=== PATIENT | female | born 1965 | race Caucasian/White ===

== ENCOUNTER → 2017-12-05 | Outpatient (CLI) | payer BC | LOC: PREOP 05:32 | PROVIDERS: ATTEND Surgery | DX: Z01.818 Encounter for other preprocedural examination (principal); C43.59 Malignant melanoma of other part of trunk ==

== ENCOUNTER → 2019-06-22 | Outpatient (CLI) | payer BC ==
--- NOTE | 2019-06-22 13:34 | Diagnostic Imaging Report ---
PROCEDURE: US Non-OB pelvis comp/trans. TECHNIQUE: Multiple real-time grayscale images were obtained of the pelvis in various projections endovaginally. Transabdominal imaging was also performed. INDICATION: Endometrial wall thickening. FINDINGS: Uterus measures 6.7 x 5.6 x 4.7 cm. The endometrium is thickened to 14 mm. No discrete endometrial mass is identified. There is an echogenic lesion within the right myometrium measuring approximately 14 mm in size, likely a fibroid. Right ovary measures 2.9 x 2.4 x 2.6 cm, and the left ovary measures 3.0 x 2.0 x 2.2 cm. Right ovary does contain a 17 mm cyst. There appears to be blood flow to the ovaries. No other mass is detected. There is no free fluid. IMPRESSION: 1. Endometrial thickening of 14 mm. 2. Probable uterine fibroid. 3. 17 mm right ovarian cyst. Dictated by: Dictated on workstation # [id number]
== END ==
LOC: RAD 10:40
PROVIDERS: ATTEND Internal Medicine Hematology & Oncology
DX: N83.201 Unspecified ovarian cyst, right side (principal); C43.9 Malignant melanoma of skin, unspecified; R93.89 Abnormal findings on diagnostic imaging of other specified body structures
CPT/HCPCS: 76830; 76856

== ENCOUNTER 2020-08-29 05:33 | Outpatient (RCR) | payer BC ==
[~2020-08-29] VITALS: Ht 160 cm; Wt 97.7 kg
[~2020-08-29 05:33] MED LIST: ACYC200C PO; LACT1CAP62 PO; MULT-1136 PO; TERB250T16 PO
== END 2020-08-29 10:18 | disposition home or self-care (01) ==
LOC: PREOP 05:33
PROVIDERS: ATTEND Obstetrics & Gynecology
DX: Z01.812 Encounter for preprocedural laboratory examination (principal); Z20.828 Contact with and (suspected) exposure to other viral communicable diseases
CPT/HCPCS: 87635

== ENCOUNTER 2020-09-01 11:16 | Day surgery (SDC) | payer BC ==
[~2020-09-01] VITALS: Ht 160 cm; Wt 97.7 kg
[2020-09-01] VITALS (12 sets, daily range): BP systolic 99–133; BP diastolic 44–78
[2020-09-01] MEDS ORDERED: fentaNYL INJECTION 100 MCG/2 ML AMP ONE (11:42)
[2020-09-01] MEDS ORDERED: LIDOCAINE PF 2% 5 ML (XYLOCAINE) VIAL ONE (11:42)
[2020-09-01] MEDS ORDERED: ONDANSETRON 4 MG/2 ML (SDV) Z0FRAN ONE (11:42)
[2020-09-01] MEDS ORDERED: proPOfol 200 MG/20 ML (DIPRIVAN) VIAL IV ONE (11:42)
[2020-09-01] MEDS ORDERED: MIDAZOLAM 2 MG/2 ML (VERSED) VIAL ONE (11:42)
[2020-09-01] MEDS ORDERED: SEVOFLURANE (ULTANE) 15 ML INHAL SOLN ONE ×3 (11:43→14:22)
[2020-09-01] MEDS ORDERED: LACTATED RINGERS 1,000 ML IV PRN (12:02)
[2020-09-01] MEDS ORDERED: metroNIDAZOLE 500MG/100ML IVPB 100 ML ONE (12:07)
[2020-09-01] MEDS ORDERED: ceFAZolin INJECTION 1,000 MG ONE (12:07)
[2020-09-01] MEDS ORDERED: ceFAZolin INJECTION 1,000 MG in WATER (STERILE) FOR INJECTION 10 ML IV ONE (12:15)
[2020-09-01] MEDS ORDERED: metroNIDAZOLE 500MG/100ML IVPB 100 ML IV ONE (12:15)
--- NOTE | 2020-09-01 13:12 | Progress Note-Pre Operative ---
Pre-Operative Progress Note H&P Reviewed The H&P was reviewed, patient examined and no changes noted. Date Seen by Provider: Sep 01, 2020 Time Seen by Provider: 13:00 Date H&P Reviewed: Sep 01, 2020 Time H&P Reviewed: 13:00 Pre-Operative Diagnosis: post menopausal bleeding, history of endometrial polyp, perianal lesion RADHA JIN DO Sep 01, 2020 13:12
--- NOTE | 2020-09-01 13:14 | Discharge Inst-Simple/Standard ---
Discharge Inst-Standard Reconcile Patient Problems Problems Reviewed?: Yes Discharge Medications New, Converted or Re-Newed RX: RX on Chart Patient Instructions/Follow Up Plan of Care/Instructions/FU: follow up in 1 week for pathology follow up and possible suture removal Activity as Tolerated: Yes (keep stools soft, sitz bath as needed, dermoplast as needed. ) Discharge Diet: Other Diet (high fiber) Return to The [facility] For: bleeding greater than 1 pad per hour fever over 101 infection, difficulty with BM RADHA JIN DO Sep 01, 2020 13:14
[2020-09-01] MEDS ORDERED: IBUP-1773 PO (13:16)
[2020-09-01] MEDS ORDERED: ACET-2267 PO (13:16)
[2020-09-01] MEDS ORDERED: BENZ78AE5 TP (13:17)
[2020-09-01] MEDS ORDERED: DOCU-143 PO (13:17)
[2020-09-01] MEDS ORDERED: HYDROmorphone 2 MG/ML VIAL (DILAUDID) ONE (13:39)
[2020-09-01] MEDS ORDERED: LIDOCAINE 1% INJ 20 ML 20 ML VIAL ONE (14:19)
--- NOTE | 2020-09-01 14:34 | Progress Note-Post Operative ---
Post-Operative Progess Note Surgeon (s)/Haul Driver (s) Surgeon RADHA JIN DO Haul Driver: NA Pre-Operative Diagnosis post menopausal bleeding, history of endometrial polyp, perianal lesion Post-Operative Diagnosis Same, endometrial curettings Procedure & Operative Findings Date of Procedure 09/01/20 Procedure Performed/Findings Hysteroscopy, dilation and curettage, excision of perianal lesion Anesthesia Type General Estimated Blood Loss Estimated blood loss (mL): < 100 ml Specimens/Packing Specimens Removed endocervical and endometrial curettings perianal lesions RADHA JIN DO Sep 01, 2020 14:34
--- NOTE | 2020-09-01 14:42 | Operative Report ---
Operative Report Date of Procedure/Surgery Sep 01, 2020 Surgeon (s) RADHA JIN DO Commuter Train Operator (s): NA Post-Operative Diagnosis Same, endomerial polyp, perianal lesion Procedure Performed Hysteroscopy, dilation and curettage, excision of perianal lesion Description of Procedure Anesthesia Type: General Estimated blood loss (mL): < 100 ml Specimen(s) collected/removed endometrial, endocervical curettings, excision of perianal lesion Description of the Procedure With informed consent, patient was taken to the operating room where general anesthetic was found to be adequate. She was then prepped and draped in the usual sterile fashion in the dorsal lithotomy position. Bladder was drained of clear yellow urine with a straight catheter. A speculum was placed in the vagina and a tenaculum placed on the anterior lip of the cervix. The cervix was dilated with Uri dilators to allow insertion of the hysteroscope. I then pe rformed hysteroscopy. There was an irregular polypoid lesion within the uterine cavity and fluffy appearing tissue underlying. I was able to grasp the polyp with polyp forceps and remove this polyp. I was able to visualize the os on either side I removed the hysteroscope and then performed a curette with a sharp curette removed a moderate amount of curettings. This was sent for pathology. On follow up scope, there was still tissue noted. Then I followed up with another curette until a gritty texture was heard. Once this was completed, I removed the instruments, removed the tenaculum and there was good hemostasis. There was a loss of approximately 170 ml of hysteroscopic fluid. I then injected the perianal lesion with 1% lidocaine and then excised it closely. Because of the proximity to the anus, I did not get a margin of greater than 1 mm. The skin lateral and posterior to the lesion did tear. I used Vicryl to reapproximate the torn edges and the lesions edges, in an interrupted fashion. Patient was awakened and taken to reconvey in stable condition. Sponge, lap, and instrument counts correct times 2. There was minimal deficit of hysteroscopic fluid. Findings of the Procedure large irregular polypoid lesion fluffy irregular endometrium hypertrophic perianal lesion, 2x2mm There were hemorrhoidal skin tags at 1 and 9 o'clock There were external hemorrhoids noted and small internal hemorrhoids. None were prolapsed, or thrombosed. Allergies and Home Medications Allergies Coded Allergies: Penicillins (Verified Allergy, Mild, RASH, 08/25/20) Sulfa (Sulfonamide Antibiotics) (Verified Allergy, Mild, RASH, 08/25/20) codeine (Verified Allergy, Mild, RASH, 08/25/20) latex (Verified Allergy, Mild, RASH, 08/25/20) Home Medications Acetaminophen 500 Mg Tablet, 1,000 MG PO TID Prescribed by: RADHA JIN on 09/01/20 1316 Acyclovir 200 Mg Capsule, 200 MG PO PRN, (Reported) Benzocaine/Menthol 78 Gm Aerosol, 78 GM TP PRN Prescribed by: RADHA JIN on 09/01/20 1317 Docusate Sodium 100 Mg Capsule, 100 MG PO DAILY Prescribed by: RADHA JIN on 09/01/20 1317 Ibuprofen 600 Mg Tablet, 600 MG PO Q6H PRN for PAIN-MILD Prescribed by: RADHA JIN on 09/01/20 1316 Lactobacillus Acidophilus 1 Each Capsule, 1 EACH PO DAILY, (Reported) Multivitamin 1 Each Tablet, 1 EACH PO DAILY, (Reported) Terbinafine HCl 250 Mg Tablet, 250 MG PO DAILY, (Reported) Patient Home Medication List Home Medication List Reviewed: Yes RADHA JIN DO Sep 01, 2020 14:42
[2020-09-01] MEDS ORDERED: morphine INJ 10 MG/ML 1ML (SYR OR VIAL) IVP ONE ×2 (14:45)
[2020-09-01] MEDS ORDERED: ACETAMINOPHEN 500 MG TAB (TYLENOL) PO PRN (14:45)
[2020-09-01] MEDS ORDERED: ONDANSETRON 4 MG/2 ML (SDV) Z0FRAN IVP PRN ×2 (14:45)
[2020-09-01] MEDS ORDERED: MEPERIDINE (DEMEROL) INJ 50 MG/ML IVP ONE ×2 (14:45)
[2020-09-01] MEDS ORDERED: BENZOCAINE/MENTHOL (DERMOPLAST) 60 ML CAN TP PRN (14:45)
[2020-09-01] MEDS ORDERED: fentaNYL INJECTION 100 MCG/2 ML AMP IVP ONE ×2 (14:45)
[2020-09-01] MEDS ORDERED: KETOROLAC 30 MG/ML VIAL IVP ONE (14:45)
--- NOTE | 2020-09-01 14:45 | Anesthesia-General Post-Op ---
General Patient Condition Mental Status/LOC: Same as Preop Cardiovascular: Satisfactory Nausea/Vomiting: Absent Respiratory: Satisfactory Pain: Controlled Complications: Absent Post Op Complications Complications None Follow Up Care/Instructions Patient Instructions None needed. Anesthesia/Patient Condition Patient Condition Patient is doing well, no complaints, stable vital signs, no apparent adverse anesthesia problems. No complications reported per nursing. PANCHO HARDY CRNA Sep 01, 2020 14:45
[2020-09-01] MEDS ORDERED: KETOROLAC 30 MG/ML VIAL ONE (15:09)
[2020-09-01] MEDS ORDERED: ONDANSETRON 4 MG (ZOFRAN) ORAL DISSOLVE TAB ONE (16:50)
[2020-09-01] MEDS ORDERED: ONDANSETRON 4 MG (ZOFRAN) ORAL DISSOLVE TAB PO ONE (17:00)
--- NOTE | 2020-09-01 17:54 | NUR ---
TIMELINE 1620 WITHIN A MINUTE OF DC'ING IV, PT C/O NAUSEA AND FEELING HOT. PT STATES SHE FORGOT TO TELL ANYONE THAT SHE USUALLY HAS NAUSEA AFTER SURGERY. COOL CLOTHS APPLIED TO NECK, FOREARM AND CHEST. BLANKETS REMOVED. VAGINAL PAD WITH SMALL AMOUNT OF BLOOD IN MIDDLE OF PAD. 1645 CONT TO C/O NAUSEA. TC TO [facility] IN ANESTHESIA 1648 TC FROM [facility], ORDER FOR ZOFRAN ODT. 1650 ZOFRAN GIVEN. 1710 CALLED INTO ROOM BY , PT LYING BACK ON BED WITH FEET HANGING OFF SIDE OF BED, BLOOD NOTED ON FLOOR AND DOWN BOTH LEGS. PT ASSISTED BACK TO BED, BP TAKEN 131/68. HR 81. PT CONT TO C/O NAUSEA. PT CLEANED UP, NEW VAGINAL PAD PLACED, PAD HAD NO MORE BLOOD ON IT NOW THAT IT DID AT 1620. BACK TO BED, BP, PULSE OX BACK ON. [address] JIN , HAD TO LEAVE MSG ASKING HER TO CALL ME ABOUT PT AND POSSIBLE NEED TO KEEP OVERNIGHT. 1724 PT VOMITED APPROX 25 ML OF BILE AND NOW STATES SHE FEELS BETTER AND WOULD PREFER TO GO HOME. CONT TO MONITOR. 1745 PT UP AND DRESSED, CLEAN VAGINAL PAD PROVIDED. VS STABLE. PT WITH ONLY SLIGHT NAUSEA NOW. 1748 PT TO CAR PER W/C. INSTRUCTIONS TO CALL FOR FIELD ENUMERATOR IF SHE CONT TO HAVE PROBLEMS OR WILL COME TO ER. PT STATES FEELS MUCH BETTER AND JUST WANTS TO SLEEP AT HOME. [address] JIN TO LET HER KNOW OF PT DECISION TO GO HOME AND THAT PT FEELS MUCH BETTER AFTER EMESIS.
== END 2020-09-01 17:45 | disposition home or self-care (01) ==
LOC: SDC 11:16
PROVIDERS: ATTEND Obstetrics & Gynecology
DX: N84.0 Polyp of corpus uteri (principal); L57.0 Actinic keratosis; K64.4 Residual hemorrhoidal skin tags; K64.8 Other hemorrhoids; E66.9 Obesity, unspecified; Z68.38 Body mass index [BMI] 38.0-38.9, adult; Z88.0 Allergy status to penicillin; Z88.1 Allergy status to other antibiotic agents; Z88.5 Allergy status to narcotic agent; Z91.040 Latex allergy status; Z79.899 Other long term (current) drug therapy; Z85.820 Personal history of malignant melanoma of skin; Z92.21 Personal history of antineoplastic chemotherapy
CPT/HCPCS: 84703; 87081; 88305